=== PATIENT | male | born 1955 | race African-American/Black ===

== ENCOUNTER 2024-07-31 09:09 | Outpatient (AMB) | payer MEDICARE, SELFPAY ==
--- NOTE | 2024-07-31 09:40 | A.OFFPC_ITS ---
Vital Signs 07/31/24 09:46 Height 5 ft 7 in Weight 211 lb BMI 33.0 BP 110/70 Blood Pressure Location Rt brachial Position Sitting Respiration 10 L Pulse 72 Pulse Source Pulse Oximeter Temp 97.6 F Temp Source Tympanic Pulse Oximetry (%) 94 Oxygen Delivery Method Room Air Intake Visit Reasons: Need to establish care Intake Note: establish care Allergies No Known Allergies Allergy (Verified 07/31/24 09:44) Medication List - Last Reconciled 07/31/24 by Bayron Yeung MD No Known Home Meds Tobacco use date assessed: 07/31/24 Fall risk assessment: No Falls in past year Last assessed Fall Risk: 07/31/24 Dental Screening Dental Screen Date: 07/31/24 Did you have a dental visit in the last 12 months?: Yes Did you have a dental problem in the last 6 months where you did not have access to dental care?: No Was dental information given to patient?: Patient has dentist HPI Need to establish care HPI Details New Patient? ?? Prior PCP:?Last PCP around 2018 in [place] Last office visit/CPE:? as above Acute issue(s):? Thigh?and?knee?pain?which?is?intermittent He?also?notes?some?epigastric?bloating?and?chest?discomfort?which he?associates?with?activity?but?is?not?consistent. ?? PMHx:?Hx HLD. SurgHx:? None FHx:? Mom: CVA, DM. Sister Colon CA. Sister: DM, kidney failure. SocHx:?Nonsmoker, EtOH Beer 12 cans a week. MJ No drugs HPI Comments History of Present Illness Details Documentation assistance for Bayron Yeung MD, was provided by Jorge Arteaga,? Account Management Specialist on 07/31/2024 at 10:07 AM ANGELES. Robbin, Dr. Yeung, have read, observed, and verified documentation. [facility] Social History (Updated 07/31/24 @ 09:44 by Lucia Blackwood MA) Housing: House Patient Tobacco Use Status: Former Tobacco user e-Cigarette/Vaping Use: Never Used Second Hand Smoke Exposure: No Use of substances other than those prescribed or required for medical reasons: No service: Yes Current occupational status: unemployed Current occupational exposures/hazards: No Cognitive needs: No Hearing needs: No Vision needs: Yes Questionnaire PHQ-9 Over the last 2 weeks, how often have you been bothered by any of the following problems? 1. Little interest or pleasure in doing things: not at all 2. Feeling down, depressed, or hopeless: not at all 3. Trouble falling or staying asleep, or sleeping too much: nearly every day 4. Feeling tired or having little energy: not at all 5. Poor appetite or overeating: not at all 6. Feeling bad about yourself - or that you are a failure or have let yourself or your family down: not at all 7. Trouble concentrating on things, such as reading the newspaper or watching television: not at all 8. Moving or speaking so slowly that other people could have noticed. Or the opposite - being so fidgety or restless that you have been moving around a lot more than usual: not at all 9. Thoughts that you would be better off or of hurting yourself in some way: not at all Total score: 3 Depression Screening Interpretation: Negative Depression Screening Done: Yes 14204 - PHQ-9 Billing: Yes Source: Developed by Drs. Roger Rosario, Safia Parry, Brandon Galvez and colleagues, with an educational ahsan from [employer]. Thrive Questionnaire Date Thrive assessed: 07/31/24 I am a: Patient What is your living situation today?: I have a steady place to live Within the past 12 months, did the food you bought not last and you didn't have the money to get more?: Never true Within the past 12 months, did you worry whether your food would run out before you got money to buy more?: Never true Do you have trouble paying for medicines?: No Do you have trouble getting transportation to medical appointments?: No Do you have trouble paying your heating and electricity bill?: No Do you have trouble taking care of your child, family member or friend?: No Do you have trouble with day-to-day activities such as bathing, preparing meals, shopping, managing finances, etc.?: No Are you currently unemployed and looking for a job?: No Are you interested in more education?: No Please select the resources that you would like help with: None Currently or been in a relationship where the following occur: No concerns reported THRIVE Score: 0 AUDIT C Alcohol Use Questionnaire (AUDIT-C) 1. How often do you have a drink containing alcohol?: 2-3 times a week 2. How many drinks containing alcohol do you have on a typical day when you are drinking?: 5 or 6 3. How often do you have six or more drinks on one occasion?: Weekly Total Score: 8 Score Reviewed/Action Taken: Yes ASHLEY-7 AMB Questionnaire ASHLEY-7 Date ASHLEY - 7 assessed: 07/31/24 Feeling nervous, anxious, or on edge: 0 = Not at all Not being able to stop or control worryin = Not at all Worrying too much about different things: 0 = Not at all Trouble relaxin = Not at all Being so restless that it is hard to sit still: 0 = Not at all Becoming easily annoyed or irritable: 0 = Not at all Feeling afraid as if something awful might happen: 0 = Not at all Total ASHLEY-7 score (0-4 normal; 5-9 mild; 10-14 moderate; 15-21 severe): 0 Source: Developed by Drs. Roger Rosario, Safia Parry, Brandon Galvez and colleagues, with an educational ahsan from [employer]. ASHLEY-7 Assessment Billing ASHLEY-7 Assessment Tool: ASHLEY-7 Assessment 33582 Review of Systems Const Denies chills, Denies fatigue, Denies fever(s), Denies headache(s) and Denies weakness ENT Denies dizziness and Denies headache(s) Card Denies chest pain, Denies lightheadedness, Denies dyspnea and Denies other (Palpitations) Resp Denies cough, Denies dyspnea, Denies wheezing and Denies other ( shortness of breath) Musc Denies numbness and Denies tingling Neuro Denies dizziness, Denies headache(s), Denies numbness, Denies tingling, Denies paresthesias and Denies weakness Psych Denies anxiety and Denies depression Endo Denies fatigue Aller/Immun Denies wheezing Physical exam (Primary Care) Vital Signs: Last Vital Signs Temp 97.6 F 07/31/24 09:46 Pulse 72 07/31/24 09:46 Resp 10 L 07/31/24 09:46 BP 110/70 07/31/24 09:46 Pulse Ox 94 07/31/24 09:46 Oxygen Delivery Method Room Air 07/31/24 09:46 BMI result Body Mass Index 33.0 Tobacco/Smoking Status: Tobacco use Status Tobacco use date assessed 07/31/24 07/31/24 09:45 Patient Tobacco Use Status Former Tobacco user 07/31/24 09:45 e-Cigarette/Vaping Use Never Used 07/31/24 09:49 PHQ-9: PHQ-9 Score PHQ-9: Total score 3 07/31/24 09:56 Depression Screening Interpretation: Negative Thrive Assessment: Date of Thrive Assessment Date Thrive assessed 07/31/24 07/31/24 09:45 Currently or been in a relationship where the following occur: No concerns reported Const General: no acute distress and well developed Nutritional Appearance: well nourished Orientation/consciousness: patient oriented x3 HENMT Head: Yes normocephalic and Yes atraumatic Eyes General: appearance normal, both eyes and all related structures Pupils: Equal, round and reactive pupils present EOM: EOMs intact bilaterally Resp Effort & Inspection: normal respiratory effort Auscultation: clear to auscultation bilaterally Cardio Rate: regular rate Rhythm: regular rhythm Heart sounds: S1 normal heart sound present, S2 normal heart sound present, no gallops, no murmurs and no rubs Neuro General: patient oriented x3 and gait normal Cranial nerves: Yes Equal, round and reactive pupils present Psych Affect: normal affect Assessment and Plan Assessment & Plan (1) Lower extremity pain: Code(s): M79.606 - Pain in leg, unspecified Plan: Patient?has?thigh?and?knee?pain?bilaterally. Walks?every?day May?be?mild?overuse?strain Advised?ice/heat?and?gentle?stretching Offered?physical?therapy?but?patient?declines?this?for?now He?will?let?me?know?if?he?changes?his?mind (2) Chest pain: Code(s): R07.9 - Chest pain, unspecified Plan: Patient?gets?some? epigastric?bloating?and?burning?discomfort?which?rises?up?and?causes?some?chest? discomfort. Associates?this?with?activity?but?this?is?not?consistent. EKG?today: Normal?sinus?rhythm,?left?axis?deviat ion,?no?hypertrophy,?no?ST-T-wave?changes. No?ischemia?or?infarction;?Likely?age-related?changes. Okay?for?him?to?exercise..??If?having?pain Trial?omeprazole?and?simethicone?for?GI?symptoms. (3) Hyperlipidemia: Code(s): E78.5 - Hyperlipidemia, unspecified Plan: History?of?hyperlipidemia Check?labs (4) Family history of diabetes mellitus: Code(s): Z83.3 - Family history of diabetes mellitus Plan: History?of?diabetes Check?labs?including?A1c (5) Laboratory exam ordered as part of routine general medical examination: Code(s): Z00.00 - Encounter for general adult medical examination without abnormal findings Plan: Check?labs (6) Epigastric discomfort: Code(s): R10.13 - Epigastric pain Plan: Trial?omeprazole?and?simethicone Orders: Orders Complete Blood Count Auto Diff Today Z00.00 - Encounter for general adult medical examination without abnormal findings Microalbumin, Random (w Creat) Today I10 - Essential (primary) hypertension UA and rflx microscopic Today Z00.00 - Encounter for general adult medical examination without abnormal findings Comprehensive [place]. Panel Fast Today Z00.00 - Encounter for general adult medical examination without abnormal findings Lipid Panel Today Z00.00 - Encounter for general adult medical examination without abnormal findings Prostate Specific Antigen Scr Today Z12.5 - Encounter for screening for malignant neoplasm of prostate TSH reflex Free T4 Today Z00.00 - Encounter for general adult medical examination without abnormal findings Hemoglobin A1c Today R73.01 - Impaired fasting glucose, Z83.3 - Family history of diabetes mellitus AMB EKG-In Office Today R07.9 - Chest pain, unspecified Medications: New simethicone 80 mg PO BID-QID 90 days PRN 270 tabs 1RF abdominal distention omeprazole 20 mg PO DAILY 90 days 90 caps 1RF Coding Level of Care Code New Pt Level 3 (49349) Diagnoses Lower extremity pain M79.606 Chest pain R07.9 Hyperlipidemia E78.5 Family history of diabetes mellitus Z83.3 Laboratory exam ordered as part of routine general medical examination Z00.00 Epigastric discomfort R10.13 Additional Codes ASHLEY-7 Assessment Billing - ASHLEY-7 Assessment Tool: ASHLEY-7 Assessment 51852 ([id number])
[2024-07-31 09:46] VITALS: BP 110/70; PULSE 72; RESP 10; TEMP 36.4; O2SAT 94; BMI 33.0
== END 2024-07-31 10:41 | disposition home or self-care (01) ==
PROVIDERS: PCP Family Medicine; Visit Provider Family Medicine
DX: M79.606 Pain in leg, unspecified (principal); R07.9 Chest pain, unspecified; E78.5 Hyperlipidemia, unspecified; Z83.3 Family history of diabetes mellitus; Z00.00 Encounter for general adult medical examination without abnormal findings; R10.13 Epigastric pain

== ENCOUNTER → 2024-07-31 09:09 | Outpatient (BNVA) | payer MEDICARE, SELFPAY | PROVIDERS: PCP Family Medicine; Visit Provider Family Medicine | DX: Z00.00 Encounter for general adult medical examination without abnormal findings (principal); R07.9 Chest pain, unspecified; E78.5 Hyperlipidemia, unspecified; R10.13 Epigastric pain; Z83.3 Family history of diabetes mellitus | CPT/HCPCS: 99202 ==

== ENCOUNTER 2024-07-31 10:48 | Outpatient (REF) | payer MEDICARE, SELFPAY ==
[2024-07-31 14:30] LABS: Appearance Urine Clear; Color Urine Yellow; Glucose Urine UA >=1000 mg/dL (Negative); Leukocyte Esterase Urine Negative (Negative); Nitrite Urine Negative (Negative); PH 5.5 (5.0-9.0); Specific Gravity - Urine 1.015 (1.005-1.025); UMIC TRIGGER UA YES; Urine Blood Negative (Negative); Urine Ketones 40 mg/dL (Negative); Urine Protein Negative (Neg-Trace)
[2024-07-31 14:30] LABS: MANUAL DIFF FLAG NO
[2024-07-31 14:36] LABS: Bacteria Urine None Seen (None Seen); Hyaline Casts Urine 0-2 /LPF (0-2); RBC Urine 0-2 /HPF (0-2); Squamous Epithelial Cell Urine 0-2 /HPF (0-2); WBC Urine 0-5 /HPF (0-5)
[2024-07-31 14:40] LABS: Basophils Absolute Auto 0.1 X10*3/uL (0.0-0.2); Basophils Percent Auto 0.8 % (0-2); Eosinophils Percent Auto 0.4 % (0-4); Hematocrit 45.2 % (42.0-52.0); Hemoglobin 16.1 g/dl (14.0-18.0); Imm Gran Abs Auto 0.03 X10*3/uL (0.00-0.03); Imm Gran Pct Auto 0.4 % (0.0-0.4); Lymphocytes Absolute Auto 1.9 X10*3/uL (1.2-4.9); Lymphocytes Percent Auto 25.7 % (20-40); Mean Corpuscular HGB Conc 35.6 g/dl (31.0-36.0); Mean Corpuscular Hemoglobin 30.2 pg (27.0-33.0); Mean Corpuscular Volume 84.8 fL (80.0-98.0); Mean Platelet Volume 9.7 fL (9.4-12.4); Monocytes Absolute Auto 0.6 X10*3/uL (0.1-1.2); Monocytes Percent Auto 7.9 % (2-11); Neutrophils Absolute Auto 4.8 x10*3/uL (2.0-8.3); Neutrophils Percent Auto 64.8 % (45-73); Platelet Count 254 X10*3/uL (160-400); Red Blood Count 5.33 X10*6/uL (4.60-5.80); Red Cell Distribution Width 12.7 % (11.0-16.0); White Blood Count 7.4 X10*3/uL (4.8-10.8)
[2024-07-31 14:52] LABS: Estimated Average Glucose 209 mg/dL; Hemoglobin A1c % 8.9 % (<6.0)
[2024-07-31 15:07] LABS: Alanine Aminotransferase 32 U/L (0-40); Albumin Level 4.2 g/dL (3.5-5.0); Alkaline Phosphatase 61 U/L (39-117); Anion Gap 13 (12-20); Aspartate Amino Transferase 24 U/L (5-37); Blood Urea Nitrogen 7 mg/dL (9-16); Calcium 9.7 mg/dL (8.4-10.2); Carbon Dioxide 24 mmol/L (22-29); Chloride 104 mmol/L (96-108); Cholesterol 233 mg/dL (<200); Estimated Glomerular Filt Rate > 60; Glucose Fasting 149 mg/dL (60-99); HDL Cholesterol 36 mg/dL (>40); LDL Cholesterol Calculated 164 mg/dL (<100); Potassium 3.7 mmol/L (3.3-5.1); Sodium 137 mmol/L (135-145); Total Protein 7.4 g/dL (6.5-8.0); Triglycerides 165 mg/dL (<150)
[2024-07-31 15:08] LABS: Creatinine Urine 85.47 mg/dL; Microalbum/Creatinine Ratio Ur 53.8 ug/mg cr (<30)
[2024-07-31 15:13] LABS: Prostate Specific Antigen Scr 1.25 ng/mL (<0.05-4.0)
== END 2024-07-31 10:49 | disposition home or self-care (01) ==
LOC: HO.WFDLDS 10:48
PROVIDERS: Visit Provider Family Medicine
DX: Z00.00 Encounter for general adult medical examination without abnormal findings (principal); I10 Essential (primary) hypertension; R73.01 Impaired fasting glucose; Z83.3 Family history of diabetes mellitus; Z12.5 Encounter for screening for malignant neoplasm of prostate
CPT/HCPCS: 36415; 80053; 80061; 81001; 82043; 82570; 83036; 84153; 84443; 85025; 99202

== ENCOUNTER 2025-03-09 13:17 | Outpatient (AMB) | payer MEDICARE, SELFPAY ==
--- NOTE | 2025-03-09 13:22 | A.OFFPC_ITS ---
Vital Signs 03/09/25 13:27 Height 5 ft 7 in Weight 207 lb 4 oz BMI 32.5 BP 130/62 Blood Pressure Location Rt brachial Position Sitting Respiration 14 Pulse 79 Pulse Source Pulse Oximeter Temp 98.0 F Temp Source Oral Pulse Oximetry (%) 96 Oxygen Delivery Method Room Air Intake Visit Reasons: go over high a1c results Intake Note: patient is scheduled to review high a1c Color Worker Required: No Allergies No Known Allergies Allergy (Verified 03/09/25 13:27) Medication List - Last Reconciled 03/09/25 by Bayron Yeung MD omeprazole 20 mg PO DAILY 90 days simethicone 80 mg PO BID-QID PRN 90 days Tobacco use date assessed: 07/31/24 Fall risk assessment: No Falls in past year Last assessed Fall Risk: 03/09/25 Dental Screening Dental Screen Date: 07/31/24 HPI go over high a1c results HPI Details pt presents to f/u labs Elevated fasting BS and A1c >9. LDL cholesterol is elevated as well. [facility] Social History (Updated 07/31/24 @ 09:44 by Lucia Blackwood [facility]) Housing: House Patient Tobacco Use Status: Former Tobacco user e-Cigarette/Vaping Use: Never Used Second Hand Smoke Exposure: No service: Yes Current occupational status: unemployed Current occupational exposures/hazards: No Cognitive needs: No Hearing needs: No Vision needs: Yes Questionnaire PHQ-9 Over the last 2 weeks, how often have you been bothered by any of the following problems? 1. Little interest or pleasure in doing things: not at all 2. Feeling down, depressed, or hopeless: not at all 3. Trouble falling or staying asleep, or sleeping too much: not at all 4. Feeling tired or having little energy: not at all 5. Poor appetite or overeating: not at all 6. Feeling bad about yourself - or that you are a failure or have let yourself or your family down: not at all 7. Trouble concentrating on things, such as reading the newspaper or watching television: not at all 8. Moving or speaking so slowly that other people could have noticed. Or the opposite - being so fidgety or restless that you have been moving around a lot more than usual: not at all 9. Thoughts that you would be better off or of hurting yourself in some way: not at all Total score: 0 Depression Screening Interpretation: Negative Depression Screening Done: Yes 76004 - PHQ-9 Billing: Yes Source: Developed by Drs. Roger Rosario, Saifa Parry, Brandon Galvez and colleagues, with an educational ahsan from [employer]. Thrive Questionnaire Date Thrive assessed: 03/06/25 I am a: Patient What is your living situation today?: I have a steady place to live Within the past 12 months, did the food you bought not last and you didn't have the money to get more?: Never true Within the past 12 months, did you worry whether your food would run out before you got money to buy more?: Never true Do you have trouble paying for medicines?: No Do you have trouble getting transportation to medical appointments?: No Do you have trouble paying your heating and electricity bill?: No Do you have trouble taking care of your child, family member or friend?: No Do you have trouble with day-to-day activities such as bathing, preparing meals, shopping, managing finances, etc.?: No Are you currently unemployed and looking for a job?: Yes Are you interested in more education?: No Please select the resources that you would like help with: None Currently or been in a relationship where the following occur: No concerns reported THRIVE Score: 0 AUDIT C Alcohol Use Questionnaire (AUDIT-C) 1. How often do you have a drink containing alcohol?: 2-4 times a month 2. How many drinks containing alcohol do you have on a typical day when you are drinking?: 3 or 4 3. How often do you have six or more drinks on one occasion?: Less than monthly Total Score: 4 Score Reviewed/Action Taken: Yes ASHLEY-7 AMB Questionnaire ASHLEY-7 Date ASHLEY - 7 assessed: 03/09/25 Feeling nervous, anxious, or on edge: 0 = Not at all Not being able to stop or control worryin = Not at all Worrying too much about different things: 0 = Not at all Trouble relaxin = Several days Being so restless that it is hard to sit still: 0 = Not at all Becoming easily annoyed or irritable: 0 = Not at all Feeling afraid as if something awful might happen: 0 = Not at all Total ASHLEY-7 score (0-4 normal; 5-9 mild; 10-14 moderate; 15-21 severe): 1 Source: Developed by Drs. Roger Rosario, Safia Parry, Brandon Galvez and colleagues, with an educational ahsan from [employer]. ASHLEY-7 Assessment Billing ASHLEY-7 Assessment Tool: ASHLEY-7 Assessment 27224 Review of Systems Const Denies chills, Denies fatigue, Denies fever(s), Denies headache(s) and Denies weakness ENT Denies dizziness and Denies headache(s) Card Denies chest pain, Denies lightheadedness, Denies dyspnea and Denies other (Palpitations) Resp Denies cough, Denies dyspnea, Denies wheezing and Denies other ( shortness of breath) Musc Denies numbness and Denies tingling Neuro Denies dizziness, Denies headache(s), Denies numbness, Denies tingling, Denies paresthesias and Denies weakness Psych Denies anxiety and Denies depression Endo Denies fatigue Aller/Immun Denies wheezing Physical exam (Primary Care) Vital Signs: Last Vital Signs Temp 98.0 F 03/09/25 13:27 Pulse 79 03/09/25 13:27 Resp 14 03/09/25 13:27 BP 130/62 03/09/25 13:27 Pulse Ox 96 03/09/25 13:27 Oxygen Delivery Method Room Air 03/09/25 13:27 BMI result Body Mass Index 32.5 Tobacco/Smoking Status: Tobacco use Status Tobacco use date assessed 07/31/24 03/09/25 13:24 Patient Tobacco Use Status Former Tobacco user 03/09/25 13:24 e-Cigarette/Vaping Use Never Used 03/09/25 13:24 PHQ-9: PHQ-9 Score PHQ-9: Total score 0 03/09/25 14:01 Depression Screening Interpretation: Negative Thrive Assessment: Date of Thrive Assessment Date Thrive assessed 03/06/25 03/09/25 13:24 Currently or been in a relationship where the following occur: No concerns reported Results AMB Hemoglobin A1c AMB Hemoglobin A1c 9.3 % Last Edit by LLUVIA Wren on 03/09/25 17:10 Results Reviewed Results Reviewed: Laboratory Last Values Hgb A1c (Clinic) 9.3 % (4.0-6.0) H 03/09/25 17:09 Coding Level of Care Code Est Pt Level 3 (31525) Diagnoses Diabetes E11.9 Hyperlipidemia E78.5 Additional Codes ASHLYE-7 Assessment Billing - ASHLEY-7 Assessment Tool: ASHLEY-7 Assessment 29279 ([id number]) PHQ-9 - 31827 - PHQ-9 Billing: Yes ([id number]) Assessment & Plan Assessment & Plan (1) Diabetes: Code(s): E11.9 - Type 2 diabetes mellitus without complications Category: Medical Plan: Patient?presents?to?follow-up?lab?work? A1c?9.3%.??Diabetes. New diagnosis. No?excessive?thirst?or?urination.??No?neuropathy. Microfilament?test?normal?bilaterally Discussed?diet?lower?in?sugars?and?starches Discussed?diet?exercise?and?weight?loss Will?refer?to?the?nurse?navigator?for?diabetic?teaching Refer?to?ophthalmology?for diabetic?eye?exam Discussed?foot?care Has?appointment?in?about?a?month?so?we?follow?up ?to?see?how?he?is?doing?with?the?new?medications. (2) Hyperlipidemia: Code(s): E78.5 - Hyperlipidemia, unspecified Category: Medical Plan: Start?atorvastatin?20?mg?daily Plan Patient?has?appointment?next?month.??We?can?follow- up?on?how?he?is?doing?his?medications. Orders: Orders AMB Hemoglobin A1c 03/09/25 E11.9 - Type 2 diabetes mellitus without complications Referrals Ophthalmology Referral E11.9 - Type 2 diabetes mellitus without complications Medications: New metformin Take w/ meal at breakfast and dinner. 500 mg PO BID 90 days 180 tabs 3RF atorvastatin 20 mg PO QPM 90 days 90 tabs 3RF
[2025-03-09 13:27] VITALS: BP 130/62; PULSE 79; RESP 14; TEMP 36.7; O2SAT 96; BMI 32.5
--- OUTSIDE RECORDS SUMMARY | 2025-03-09 13:58 | XMS_ITS | Continuity of Care Document ---
Author Name [facility] Organization [facility] Care Team Providers Care Global Logistics Manager Name Role Phone [facility] Unavailable Unavailable Problems Combined list of problems from Department of Defense and Veterans Affairs facilities. It does not include entries that were removed or entered in error. Problem Status Onset Date Problem Type Date of Resolution Comments Source ABDOM PAIN, GEN'L Active Condition [facility] Anxiety (SNOMED CT 70619806) Active Condition [facility] Anxiety (SNOMED CT 50967448) Active Condition Aug 29, 2021 Entered By: USER,CBOC MIGRATION Comment: Added from station 612 as a result of CBOC move. 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 [facility] GERD Active Condition [facility] Gonococcal prostatitis (acute) (ICD-9-CM 098.12) [facility] Hyperlipidemia Active Condition [facility] Hyperlipidemia Active Condition Aug 152020 Entered By: USER,CBOC MIGRATION Comment: Added from station 612 as a result of CBOC move. [facility] Impacted cerumen * (ICD-9-CM 380.4) Active Condition [facility] ISSUE REPEAT PRESCRIPT Active Condition [facility] Muscle Cramp (ICD-9-CM 729.82) Active Condition [facility] Polyp, Colon Active Condition [facility] Shoulder pain Active Condition [facility] SPRAIN OF WRIST NEC Active Condition [facility] URI (ICD-9-CM 465.9) Active Condition [facility] URIN TRACT INFECTION NOS Active Condition [facility] Varicose veins, leg (ICD-9-CM 454.9) Active Condition [facility] Vitamin D deficiency Active Condition [facility] Vitamin D deficiency Active Condition Aug 29, 2021 Entered By: USER,CBOC MIGRATION Comment: Added from station 612 as a result of CBOC move. [facility] Vitamin D Deficiency (ICD-9-CM 268.9) Active Condition [facility] Wrist sprain (ICD-9-CM 842.09) Active Condition [facility] Medications Combined list of outpatient medications [...] ONCE DAILY ORAL ACTIVE WARNER SMALL 2012 [facility] Immunizations Combined list of available immunizations from the Department of Defense and Veterans Affairs facilities. Immunization Series Date Given Administered By Site Reaction Lot Number CVX Code Drug Fast Food Supervisor Status Comments Source INFLUENZA, INJECTABLE, QUADRIVALENT, PRESERVATIVE FREE 2018 150 complet [facility] INFLUENZA, INJECTABLE, QUADRIVALENT, PRESERVATIVE FREE 2017 150 complet [facility] INFLUENZA, UNSPECIFIED FORMULATION 2015 88 complet ed [facility] 2015 121 complet [facility] INFLUENZA, SEASONAL, INJECTABLE, PRESERVATIVE FREE 2014 140 complet [facility] INFLUENZA, UNSPECIFIED FORMULATION 2012 88 complet [facility] INFLUENZA, UNSPECIFIED FORMULATION 2011 88 complet [facility] TDAP 2011 115 complet [facility] HEP A, UNSPECIFIED FORMULATION 2 2009 85 complet [facility] HEP A, UNSPECIFIED FORMULATION 1 2009 85 complet [facility] INFLUENZA, UNSPECIFIED FORMULATION 2005 88 complet [facility] PNEUMOCOCCAL POLYSACCHARID E PPV23 2005 33 complet [facility] TD(ADULT) UNSPECIFIED FORMULATION 2005 139 complet [facility] PNEUMOCOCCAL, UNSPECIFIED FORMULATION 1999 109 complet ed refused at this time SE JD NA [facility] TETANUS TOXOID, UNSPECIFIED FORMULATION 1996 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
== END 2025-03-09 13:51 | disposition home or self-care (01) ==
LOC: HO.HMCFM 13:18
PROVIDERS: PCP Family Medicine; Visit Provider Family Medicine
DX: E11.9 Type 2 diabetes mellitus without complications (principal); E78.5 Hyperlipidemia, unspecified

== ENCOUNTER → 2025-03-09 13:17 | Outpatient (BNVA) | payer MEDICARE, SELFPAY | PROVIDERS: PCP Family Medicine; Visit Provider Family Medicine | DX: E11.9 Type 2 diabetes mellitus without complications (principal); E78.5 Hyperlipidemia, unspecified | CPT/HCPCS: 83036; 96127; 99212 ==

== ENCOUNTER 2025-03-26 08:59 | Outpatient (AMB) | payer MEDICARE, SELFPAY ==
--- NOTE | 2025-03-26 09:02 | MHC.PC.OV ---
Vital Signs 03/26/25 09:06 Height 5 ft 7 in Weight 203 lb 4 oz BMI 31.8 BP 118/70 Blood Pressure Location Rt brachial Position Sitting Respiration 14 Pulse 62 Pulse Source Pulse Oximeter Temp 97.4 F Temp Source Oral Pulse Oximetry (%) 97 Oxygen Delivery Method Room Air Intake Visit Reasons: CPE with f/u labs & health maint. 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: No Allergies No Known Allergies Allergy (Verified 03/26/25 09:05) Medication List - Last Reconciled 03/26/25 by Bayron Yeung MD atorvastatin 20 mg PO QPM 90 days metformin 500 mg PO BID 90 days omeprazole 20 mg PO DAILY 90 days simethicone 80 mg PO BID-QID PRN 90 days Tobacco use date assessed: 03/26/25 Fall risk assessment: No Falls in past year Last assessed Fall Risk: 03/26/25 Dental Screening Dental Screen Date: 03/26/25 Did you have a dental visit in the last 12 months?: Yes Did you have a dental problem in the last 6 months where you did not have access to dental care?: No Was dental information given to patient?: No HPI CPE with f/u labs & health maint. - see comments HPI Details 69 y/o male presents for a CPE with f/u labs and health maintenance. No recent labs to review. He is on artovastatin. Last A1c 03/09/25 9.3% - new diagnosis of diabetes. He is now on metformin 500mg b.i.d. HPI Comments History of Present Illness Details Documentation assistance for Bayron Yeung MD, was provided by Jorge Arteaga, Assistant Manager Pt on 03/26/2025 at 9:26 AM ANGELES. I, Dr. Yeung, have read, observed, and verified documentation. ? PFSH Social History Housing: House Patient Tobacco Use Status: Former Tobacco user e-Cigarette/Vaping Use: Never Used Second Hand Smoke Exposure: No service: Yes Current occupational status: unemployed Current occupational exposures/hazards: No Cognitive needs: No Hearing needs: No Vision needs: Yes Questionnaire PHQ-9 Over the last 2 weeks, how often have you been bothered by any of the following problems? 1. Little interest or pleasure in doing things: not at all 2. Feeling down, depressed, or hopeless: not at all 3. Trouble falling or staying asleep, or sleeping too much: not at all 4. Feeling tired or having little energy: not at all 5. Poor appetite or overeating: not at all 6. Feeling bad about yourself - or that you are a failure or have let yourself or your family down: not at all 7. Trouble concentrating on things, such as reading the newspaper or watching television: not at all 8. Moving or speaking so slowly that other people could have noticed. Or the opposite - being so fidgety or restless that you have been moving around a lot more than usual: not at all 9. Thoughts that you would be better off or of hurting yourself in some way: not at all Total score: 0 Depression Screening Interpretation: Negative Depression Screening Done: Yes 74783 - PHQ-9 Billing: Yes Source: Developed by Drs. Roger Rosario, Safia Parry, Brandon Galvez and colleagues, with an educational ahsan from [employer] Thrive Questionnaire Date Thrive assessed: 03/26/25 I am a: Patient What is your living situation today?: I have a steady place to live Within the past 12 months, did the food you bought not last and you didn't have the money to get more?: Never true Within the past 12 months, did you worry whether your food would run out before you got money to buy more?: Never true Do you have trouble paying for medicines?: No Do you have trouble getting transportation to medical appointments?: No Do you have trouble paying your heating and electricity bill?: No Do you have trouble taking care of your child, family member or friend?: No Do you have trouble with day-to-day activities such as bathing, preparing meals, shopping, managing finances, etc.?: No Are you currently unemployed and looking for a job?: Yes Are you interested in more education?: No Please select the resources that you would like help with: None Currently or been in a relationship where the following occur: No concerns reported THRIVE Score: 0 AUDIT C Alcohol Use Questionnaire (AUDIT-C) 1. How often do you have a drink containing alcohol?: 2-3 times a week 2. How many drinks containing alcohol do you have on a typical day when you are drinking?: 1 or 2 3. How often do you have six or more drinks on one occasion?: Less than monthly Total Score: 4 Score Reviewed/Action Taken: Yes ASHLEY-7 AMB Questionnaire ASHLEY-7 Date ASHLEY - 7 assessed: 03/26/25 Feeling nervous, anxious, or on edge: 0 = Not at all Not being able to stop or control worryin = Not at all Worrying too much about different things: 0 = Not at all Trouble relaxin = Not at all Being so restless that it is hard to sit still: 0 = Not at all Becoming easily annoyed or irritable: 0 = Not at all Feeling afraid as if something awful might happen: 0 = Not at all Total ASHLEY-7 score (0-4 normal; 5-9 mild; 10-14 moderate; 15-21 severe): 0 Source: Developed by Drs. Roger Rosario, Safia Parry, Brandon Galvez and colleagues, with an educational ahsan from [employer] ASHLEY-7 Assessment Billing ASHLEY-7 Assessment Tool: ASHLEY-7 Assessment 90893 Review of Systems Const Denies chills, Denies fatigue, Denies fever(s), Denies headache(s) and Denies weakness Eyes Denies change in vision ENT Denies dizziness, Denies headache(s), Denies hearing loss, Denies nasal congestion, Denies sinus pain, Denies sinus pressure and Denies sore throat Card Denies chest pain, Denies lightheadedness, Denies dyspnea and Denies other (palpitations) Resp Denies cough, Denies dyspnea and Denies wheezing GI Denies abdominal pain, Denies melena, Denies hematochezia, Denies change in bowel habits, Denies dyspepsia and Denies nausea Denies hematuria and Denies dysuria Musc Denies abnormal gait, Denies myalgias, Denies arthralgias, Denies numbness and Denies tingling Skin/Breast Denies rash, Denies unusual bruising and Denies wounds Neuro Denies abnormal gait, Denies dizziness, Denies headache(s), Denies memory loss, Denies numbness, Denies Sensory deficit (Neuro), Denies tingling and Denies weakness Psych Denies anxiety, Denies depression and Denies memory loss Endo Denies cold intolerance, Denies fatigue, Denies heat intolerance, Denies polydipsia and Denies polyuria Jason/Lymph Denies easy bleeding and Denies easy bruising Aller/Immun Denies wheezing Physical exam (Primary Care) Vital Signs: Last Vital Signs Temp 97.4 F 03/26/25 09:06 Pulse 62 03/26/25 09:06 Resp 14 03/26/25 09:06 BP 118/70 03/26/25 09:06 Pulse Ox 97 03/26/25 09:06 Oxygen Delivery Method Room Air 03/26/25 09:06 BMI result Body Mass Index 31.8 Tobacco/Smoking Status: Tobacco use Status Tobacco use date assessed 03/26/25 03/26/25 09:10 Patient Tobacco Use Status Former Tobacco user 03/26/25 09:10 e-Cigarette/Vaping Use Never Used 03/26/25 09:10 PHQ-9: PHQ-9 Score PHQ-9: Total score 0 03/26/25 09:22 Depression Screening Interpretation: Negative Thrive Assessment: Date of Thrive Assessment Date Thrive assessed 03/26/25 03/26/25 09:10 Currently or been in a relationship where the following occur: No concerns reported Const General: no acute distress, well developed, alert and awake Nutritional Appearance: well nourished Orientation/consciousness: patient oriented x3 HENMT Head: Yes normocephalic and Yes atraumatic Ears: hearing grossly normal bilaterally and TM's normal bilaterally General nose exam: Normal external nose present and Normal nares present Mouth: Normal oral and palatal mucosa present and moist mucous membranes Teeth and gingiva: dentition normal Throat: Yes posterior oropharynx normal Eyes General: appearance normal, both eyes and all related structures Pupils: Equal, round and reactive pupils present and Pupil accommodation reflex normal EOM: EOMs intact bilaterally Neck Neck: Yes normal visual inspection, Yes no lymphadenopathy and Yes trachea midline Thyroid: Thyroid normal Carotids: no bruits Lymphatic: no lymphadenopathy noted Chest Chest palpation & inspection: normal inspection of the chest Resp Effort & Inspection: normal respiratory effort Auscultation: clear to auscultation bilaterally Cardio Rate: regular rate Rhythm: regular rhythm Heart sounds: S1 normal heart sound present, S2 normal heart sound present, no gallops, no murmurs and no rubs Bruits: no abdominal aortic bruits and no carotid bruits GI Palpation (GI): No Abdominal aortic bruit present, Soft to palpation, nontender, No hepatosplenomegaly present and No Rebound tenderness present Auscultation: normal bowel sounds General: Yes no CVA tenderness Back/Spine/Pelvis Back: no CVA tenderness Cervical Spine: cervical ROM normal and No Cervical spine tenderness Thoracic/Lumbar Spine: thoraco-lumbar ROM normal, No pain with thoraco-lumbar ROM, No thoracic spinal tenderness and No lumbar spinal tenderness Skin Lesions: no lesions Rashes: no rashes Trauma: no lacerations or abrasions Wounds: no wounds Nails: normal Neuro General: patient oriented x3 Cranial nerves: Yes Equal, round and reactive pupils present Cognition (Neuro): normal cognition Gait exam (Neuro): Normal gait present Motor exam (neuro): 5/5 motor strength present throughout Sensory Exam: No Sensory deficit (Neuro) Deep tendon reflexes (DTR's): Right patellar reflex intensity grade: 2+ and Left patellar reflex intensity grade: 2+ Extrem General: Yes normal to inspection and No edema Psych Appearance: grossly normal Affect: normal affect Attitude: cooperative Thought process: Normal thought process present Coding Level of Care Code Est Pt Level 3 (03938) Est Pt Prev Care >65y(89481) Diagnoses Adult general medical exam Z00.00 Diabetes E11.9 Hyperlipidemia E78.5 Screening for colon cancer Z12.11 Screening for prostate cancer Z12.5 Additional Codes ASHLEY-7 Assessment Billing - ASHLEY-7 Assessment Tool: ASHLEY-7 Assessment 56114 ([id number]) PHQ-9 - 79702 - PHQ-9 Billing: Yes ([id number]) Assessment & Plan Assessment & Plan (1) Adult general medical exam: Code(s): Z00.00 - Encounter for general adult medical examination without abnormal findings Category: Medical Plan: 69-year-old?male?presents?for?complete?physical?exam Encouraged?healthy?diet?with?active?lifestyle?and?plenty?of?exercise (2) Diabetes: Code(s): E11.9 - Type 2 diabetes mellitus without complications Category: Medical Plan: Recent?diagnosis?of?diabetes. Started?patient?on?metformin?last?month?and?he?is?tolerating?this?fairly?well.??Continue?medication. Will?have?him?return?in?about?2?months?for?follow-up?diabetes?and?recheck?of?A1c (3) Hyperlipidemia: Code(s): E78.5 - Hyperlipidemia, unspecified Category: Medical Plan: LDL?cholesterol?was?high?and?he?was?started?on?atorvastatin?recently Will?recheck?lipids?with?next?blood?draw?and?follow-up?in?2?months. (4) Screening for colon cancer: Code(s): Z12.11 - Encounter for screening for malignant neoplasm of colon Category: Medical Plan: FIT test Neg. Up to Date (5) Screening for prostate cancer: Code(s): Z12.5 - Encounter for screening for malignant neoplasm of prostate Category: Medical Plan: PSA?was?within?normal?range Will?continue?annual?screening Orders: Orders Lipid Panel Today E78.5 - Hyperlipidemia, unspecified, Z00.00 - Encounter for general adult medical examination without abnormal findings [facility] [place]. Panel Fast Today E11.9 - Type 2 diabetes mellitus without complications, Z00.00 - Encounter for general adult medical examination without abnormal findings
[2025-03-26 09:06] VITALS: BP 118/70; PULSE 62; RESP 14; TEMP 36.3; O2SAT 97; BMI 31.8
--- OUTSIDE RECORDS SUMMARY | 2025-03-26 09:07 | XMS_ITS | Continuity of Care Document ---
Author Name [facility] Organization 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 Unavailable Unavailable Problems Combined list of problems from Department of Defense and Veterans Affairs facilities. It does not include entries that were removed or entered in error. Problem Status Onset Date Problem Type Date of Resolution Comments Source ABDOM PAIN, GEN'L Active Condition [facility] Anxiety (SNOMED CT 44515737) Active Condition [facility] Anxiety (SNOMED CT 25050147) Active Condition Aug 29, 2021 Entered By: USER,CBOC MIGRATION Comment: Added from station 612 as a result of CBOC move. 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 [facility] GERD Active Condition [facility] Gonococcal prostatitis (acute) (ICD-9-CM 098.12) Active [facility] Hyperlipidemia Active Condition [facility] Hyperlipidemia Active Condition Aug 152020 Entered By: USER,CBOC MIGRATION Comment: Added from station 612 as a result of CBOC move. [facility] Impacted cerumen * (ICD-9-CM 380.4) Active Condition [facility] ISSUE REPEAT PRESCRIPT Active Condition [facility] Muscle Cramp (ICD-9-CM 729.82) Active Condition [facility] Polyp, Colon Active Condition [facility] Shoulder pain Active Condition [facility] SPRAIN OF WRIST NEC Active Condition [facility] URI (ICD-9-CM 465.9) Active Condition [facility] URIN TRACT INFECTION NOS Active Condition [facility] Varicose veins, leg (ICD-9-CM 454.9) Active Condition [facility] Vitamin D deficiency Active Condition [facility] Vitamin D deficiency Active Condition Aug 29, 2021 Entered By: USER,CBOC MIGRATION Comment: Added from station 612 as a result of CBOC move. [facility] Vitamin D Deficiency (ICD-9-CM 268.9) Active Condition [facility] Wrist sprain (ICD-9-CM 842.09) Active Condition [facility] Medications Combined list of outpatient medications from [...] ONCE DAILY ORAL ACTIVE WARNER SMALL 2012 [facility] Immunizations Combined list of available immunizations from the Department of Defense and Veterans Affairs facilities. Immunization Series Date Given Administered By Site Reaction Lot Number CVX Code Drug Worship Director Status Comments Source INFLUENZA, INJECTABLE, QUADRIVALENT, PRESERVATIVE FREE 2018 150 complet [facility] INFLUENZA, INJECTABLE, QUADRIVALENT, PRESERVATIVE FREE 2017 150 complet [facility] INFLUENZA, UNSPECIFIED FORMULATION 2015 88 complet ed [facility] 2015 121 complet [facility] INFLUENZA, SEASONAL, INJECTABLE, PRESERVATIVE FREE 2014 140 complet [facility] INFLUENZA, UNSPECIFIED FORMULATION 2012 88 complet [facility] INFLUENZA, UNSPECIFIED FORMULATION 2011 88 complet [facility] TDAP 2011 115 complet [facility] HEP A, UNSPECIFIED FORMULATION 2 2009 85 complet [facility] HEP A, UNSPECIFIED FORMULATION 1 2009 85 complet [facility] INFLUENZA, UNSPECIFIED FORMULATION 2005 88 complet [facility] PNEUMOCOCCAL POLYSACCHARID E PPV23 2005 33 complet [facility] TD(ADULT) UNSPECIFIED FORMULATION 2005 139 complet [facility] PNEUMOCOCCAL, UNSPECIFIED FORMULATION 1999 109 complet ed refused at this time [facility] TETANUS TOXOID, UNSPECIFIED FORMULATION 1996 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
== END 2025-03-26 09:32 | disposition home or self-care (01) ==
LOC: HO.HMCFM 09:00
PROVIDERS: PCP Family Medicine; Visit Provider Family Medicine
DX: Z00.00 Encounter for general adult medical examination without abnormal findings (principal); E11.9 Type 2 diabetes mellitus without complications; E78.5 Hyperlipidemia, unspecified; Z12.11 Encounter for screening for malignant neoplasm of colon; Z12.5 Encounter for screening for malignant neoplasm of prostate

== ENCOUNTER → 2025-03-26 08:59 | Outpatient (BNVA) | payer MEDICARE, SELFPAY | PROVIDERS: PCP Family Medicine; Visit Provider Family Medicine | DX: Z00.00 Encounter for general adult medical examination without abnormal findings (principal); E11.9 Type 2 diabetes mellitus without complications; E78.5 Hyperlipidemia, unspecified | CPT/HCPCS: 96127; 99397 ==

== ENCOUNTER 2025-06-19 09:19 | Outpatient (AMB) | payer MEDICARE, SELFPAY ==
--- OUTSIDE RECORDS SUMMARY | 2019-09-26 11:00 | XMS_ITS | Continuity of Care Document ---
Author Name [facility] Organization [facility] Care Team Providers Care Mirror Framer Name Role Phone [facility] Unavailable Unavailable Problems Combined list of problems from Department of Defense and Veterans Affairs facilities. It does not include entries that were removed or entered in error. Problem Status Onset Date Problem Type Date of Resolution Comments Source ABDOM PAIN, GEN'L Active Condition [facility] Anxiety (SNOMED CT 62820919) Active Condition [facility] Anxiety (SNOMED CT 69585048) Active Condition Aug 29, 2021 Entered By: USER,CBOC MIGRATION Comment: Added from station 612 as a result of CBOC move. 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 [facility] GERD Active Condition [facility] Gonococcal prostatitis (acute) (ICD-9-CM 098.12) [facility] Hyperlipidemia Active Condition [facility] Hyperlipidemia Active Condition Aug 152020 Entered By: USER,CBOC MIGRATION Comment: Added from station 612 as a result of CBOC move. [facility] Impacted cerumen * (ICD-9-CM 380.4) Active Condition [facility] ISSUE REPEAT PRESCRIPT Active Condition [facility] Muscle Cramp (ICD-9-CM 729.82) Active Condition [facility] Polyp, Colon Active Condition [facility] Shoulder pain Active Condition [facility] SPRAIN OF WRIST NEC Active Condition [facility] URI (ICD-9-CM 465.9) Active Condition [facility] URIN TRACT INFECTION NOS Active Condition [facility] Varicose veins, leg (ICD-9-CM 454.9) Active Condition [facility] Vitamin D deficiency Active Condition [facility] Vitamin D deficiency Active Condition Aug 29, 2021 Entered By: USER,CBOC MIGRATION Comment: Added from station 612 as a result of CBOC move. [facility] Vitamin D Deficiency (ICD-9-CM 268.9) Active Condition [facility] Wrist sprain (ICD-9-CM 842.09) Active Condition [facility] Medications Combined list of outpatient medications from Department of Defense and Veterans Affairs facilities.Medications provided include 1) outpatient medications from the last 15 months, and 2) patient-reported medications. 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 Immunization Series Date Given Administered By Site Reaction Lot Number CVX Code Drug Road Traffic Controller Status Comments Source INFLUENZA, INJECTABLE, QUADRIVALENT, PRESERVATIVE FREE 2018 150 complet [facility] INFLUENZA, INJECTABLE, QUADRIVALENT, PRESERVATIVE FREE 2017 150 complet [facility] INFLUENZA, UNSPECIFIED FORMULATION 2015 88 complet ed [facility] ZOSTER LIVE 2015 121 complet [facility] INFLUENZA, SEASONAL, INJECTABLE, PRESERVATIVE FREE 2014 140 complet [facility] INFLUENZA, UNSPECIFIED FORMULATION 2012 88 complet [facility] INFLUENZA, UNSPECIFIED FORMULATION 2011 88 complet [facility] TDAP 2011 115 complet [facility] HEP A, UNSPECIFIED FORMULATION 2 2009 85 complet [facility] HEP A, UNSPECIFIED FORMULATION 1 2009 85 complet [facility] INFLUENZA, UNSPECIFIED FORMULATION 2005 88 complet [facility] PNEUMOCOCCAL POLYSACCHARID E PPV23 2005 33 complet [facility] TD(ADULT) UNSPECIFIED FORMULATION 2005 139 complet 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 Social History Type Response Date Comment [facility] e Tobacco smoking status [facility] NEVER USED 07/25/2018 [facility] History of tobacco use LIFETIME NON-TOBA VISCOSE CELLAR CHARGE HAND USER 12/07/2016 [facility] History of tobacco use LIFETIME NON-TOBA VISCOSE CELLAR CHARGE HAND USER 08/10/2006 [facility]
--- NOTE | 2025-06-19 09:39 | MHC.PC.OV ---
Vital Signs 06/19/25 09:45 Height 5 ft 7 in Weight 212 lb 4 oz BMI 33.2 BP 120/70 Blood Pressure Location Rt brachial Position Sitting Respiration 14 Pulse 79 Pulse Source Pulse Oximeter Temp 98.0 F Temp Source Oral Pulse Oximetry (%) 94 Oxygen Delivery Method Room Air Intake Visit Reasons: f/u HLD, diabetes Intake Note: patient is scheduled for for lab and dm review Sound Editor Required: No Allergies No Known Allergies Allergy (Verified 06/19/25 09:41) Medication List - Last Reconciled 06/19/25 by Bayron Yeung MD atorvastatin 20 mg PO QPM 90 days metformin 500 mg PO BID 90 days omeprazole 20 mg PO DAILY 90 days simethicone 80 mg PO BID-QID PRN 90 days Tobacco use date assessed: 03/26/25 Dental Screening Dental Screen Date: 03/26/25 HPI f/u HLD, diabetes HPI Details 70 y/o male presents to f/u HLD, diabetes. No recent labs to review for his lipids. He states he is tolerating artovastatin well. Last A1c 03/09/25 9.3%. A1c today much improved to 6.8%. Pt reports tinnitus. HPI Comments History of Present Illness Details Documentation assistance for Bayron eYung MD, was provided by Jorge Arteaga,? Family Law Specialist on 06/19/2025 at 9:58 AM EST. I, Dr. Yeung, have read, observed, and verified documentation. ?? [facility] Social History Housing: House Patient Tobacco Use Status: Former Tobacco user e-Cigarette/Vaping Use: Never Used Second Hand Smoke Exposure: No service: Yes Current occupational status: unemployed Current occupational exposures/hazards: No Cognitive needs: No Hearing needs: No Vision needs: Yes Questionnaire Thrive Questionnaire Date Thrive assessed: 03/06/25 I am a: Patient What is your living situation today?: I have a steady place to live Within the past 12 months, did the food you bought not last and you didn't have the money to get more?: Never true Within the past 12 months, did you worry whether your food would run out before you got money to buy more?: Never true Do you have trouble paying for medicines?: No Do you have trouble getting transportation to medical appointments?: No Do you have trouble paying your heating and electricity bill?: No Do you have trouble taking care of your child, family member or friend?: No Do you have trouble with day-to-day activities such as bathing, preparing meals, shopping, managing finances, etc.?: No Are you currently unemployed and looking for a job?: Yes Are you interested in more education?: No Please select the resources that you would like help with: None Currently or been in a relationship where the following occur: No concerns reported THRIVE Score: 0 ASHLEY-7 AMB Questionnaire ASHLEY-7 Date ASHLEY - 7 assessed: 03/26/25 Source: Developed by Drs. Roger Rosario, Safia Parry, Brandon Galvez and colleagues, with an educational ahsan from [employer]. Review of Systems Const Denies chills, Denies fatigue, Denies fever(s), Denies headache(s) and Denies weakness ENT Denies dizziness and Denies headache(s) Card Denies dyspnea Resp Denies cough, Denies dyspnea, Denies wheezing and Denies other (shortness of breath) Musc Denies numbness and Denies tingling Neuro Denies dizziness, Denies headache(s), Denies numbness, Denies tingling and Denies weakness Psych Denies anxiety and Denies depression Endo Denies fatigue Aller/Immun Denies wheezing Physical exam (Primary Care) Vital Signs: Last Vital Signs Temp 98.0 F 06/19/25 09:45 Pulse 79 06/19/25 09:45 Resp 14 06/19/25 09:45 BP 120/70 06/19/25 09:45 Pulse Ox 94 06/19/25 09:45 Oxygen Delivery Method Room Air 06/19/25 09:45 BMI result Body Mass Index 33.2 Tobacco/Smoking Status: Tobacco use Status Tobacco use date assessed 03/26/25 06/19/25 09:40 Patient Tobacco Use Status Former Tobacco user 06/19/25 09:40 e-Cigarette/Vaping Use Never Used 06/19/25 09:40 Thrive Assessment: Date of Thrive Assessment Date Thrive assessed 03/06/25 06/19/25 09:40 Currently or been in a relationship where the following occur: No concerns reported Const General: well developed; No acute distress Nutritional Appearance: well nourished Orientation/consciousness: patient oriented x3 HENMT Head: Yes normocephalic and Yes atraumatic Eyes General: appearance normal, both eyes and all related structures Pupils: Equal, round and reactive pupils present EOM: EOMs intact bilaterally Resp Effort & Inspection: normal respiratory effort Neuro General: patient oriented x3 and gait normal Cranial nerves: Yes Equal, round and reactive pupils present Psych Affect: normal affect Coding Level of Care Code Est Pt Level 4 (75712) Diagnoses Diabetes E11.9 Hyperlipidemia E78.5 Tinnitus H93.19 Assessment & Plan Assessment & Plan (1) Diabetes: Code(s): E11.9 - Type 2 diabetes mellitus without complications Category: Medical Plan: A1c significantly improved from 9.3% in February to 6.8% today. Now at goal of less than 7% Continue current medication Continue diabetic diet Will continue to monitor (2) Hyperlipidemia: Code(s): E78.5 - Hyperlipidemia, unspecified Category: Medical Plan: Patient is tolerating atorvastatin 20 mg daily Has not gotten labs drawn but will do so today. (3) Tinnitus: Code(s): H93.19 - Tinnitus, unspecified ear Category: Medical Plan: Ongoing tinnitus No cerumen impaction in either ear Sending patient to audiology for testing Orders: Referrals Audiology Referral H93.19 - Tinnitus, unspecified ear
[2025-06-19 09:45] VITALS: BP 120/70; PULSE 79; RESP 14; TEMP 36.7; O2SAT 94; BMI 33.2
== END 2025-06-19 10:05 | disposition home or self-care (01) ==
LOC: HO.HMCFM 09:20
PROVIDERS: PCP Family Medicine; Visit Provider Family Medicine
DX: E11.9 Type 2 diabetes mellitus without complications (principal); E78.5 Hyperlipidemia, unspecified; H93.19 Tinnitus, unspecified ear

== ENCOUNTER → 2025-06-19 09:19 | Outpatient (BNVA) | payer MEDICARE, SELFPAY | PROVIDERS: PCP Family Medicine; Visit Provider Family Medicine | DX: E11.9 Type 2 diabetes mellitus without complications (principal); E78.5 Hyperlipidemia, unspecified; H93.19 Tinnitus, unspecified ear | CPT/HCPCS: 99212 ==

== ENCOUNTER 2025-06-19 10:11 | Outpatient (REF) | payer MEDICARE, SELFPAY ==
[2025-06-19 14:11] LABS: Appearance Urine Clear; Glucose Urine UA Negative (Negative); PH 5.5 (5.0-9.0); Specific Gravity - Urine 1.015 (1.005-1.025)
[2025-06-19 14:46] LABS: Microalbum/Creatinine Ratio Ur 21.5 ug/mg cr (<30)
[2025-06-19 14:48] LABS: Alanine Aminotransferase 60 U/L (0-40); Albumin Level 4.6 g/dL (3.5-5.0); Alkaline Phosphatase 57 U/L (39-117); Anion Gap 12 (12-20); Aspartate Amino Transferase 38 U/L (5-37); Blood Urea Nitrogen 10 mg/dL (9-16); Calcium 9.3 mg/dL (8.4-10.2); Carbon Dioxide 26 mmol/L (22-29); Chloride 104 mmol/L (96-108); Cholesterol 136 mg/dL (<200); Estimated Glomerular Filt Rate > 60; HDL Cholesterol 30 mg/dL (>40); Potassium 3.8 mmol/L (3.3-5.1); Sodium 138 mmol/L (135-145); Total Protein 7.6 g/dL (6.5-8.0); Triglycerides 138 mg/dL (<150)
== END 2025-06-19 10:12 | disposition home or self-care (01) ==
LOC: HO.WFDLDS 10:11
PROVIDERS: Visit Provider Family Medicine
DX: Z00.00 Encounter for general adult medical examination without abnormal findings (principal); I10 Essential (primary) hypertension; E11.9 Type 2 diabetes mellitus without complications; E78.5 Hyperlipidemia, unspecified
CPT/HCPCS: 36415; 80053; 80061; 81003; 82043; 82570

== ENCOUNTER 2025-08-07 07:46 | Outpatient (REF) | payer MEDICARE, SELFPAY | END 2025-08-07 07:47 | disposition home or self-care (01) | LOC: HO.SH 07:46 | PROVIDERS: Visit Provider Family Medicine | DX: Z01.118 Encounter for examination of ears and hearing with other abnormal findings (principal); H90.3 Sensorineural hearing loss, bilateral; H93.11 Tinnitus, right ear | CPT/HCPCS: 92557; 92567 ==

== ENCOUNTER 2025-09-20 13:18 | Outpatient (AMB) | payer MEDICARE, SELFPAY ==
--- NOTE | 2025-09-20 13:39 | MHC.PC.OV ---
Vital Signs 09/20/25 13:41 09/20/25 13:47 Height 5 ft 7 in Weight 207 lb 8 oz BMI 32.5 BP 145/79 H 151/73 H Blood Pressure Location Lt brachial Lt brachial Position Sitting Sitting Pulse 63 Pulse Source Pulse Oximeter Temp 97.7 F Temp Source Oral Pulse Oximetry (%) 98 Oxygen Delivery Method Room Air Intake Visit Reasons: f/u diabetes Intake Note: Follow up diabetes Channel Marketing Program Manager Required: No Allergies No Known Allergies Allergy (Verified 09/20/25 13:41) Medication List - Last Reconciled 09/20/25 by Bayron Yeung MD atorvastatin 20 mg PO QPM 90 days metformin 500 mg PO BID 90 days omeprazole 20 mg PO DAILY 90 days simethicone 80 mg PO BID-QID PRN 90 days Tobacco use date assessed: 09/20/25 Fall risk assessment: No Falls in past year Last assessed Fall Risk: 09/20/25 Dental Screening Dental Screen Date: 03/26/25 HPI f/u diabetes HPI Details 70 y/o male presents to f/u diabetes. A1c today 11%.. Blood pressure today elevated at 151/73. [facility] Social History (Updated 09/20/25 @ 13:52 by Nery Gomes CMA) Housing: House Alcohol intake: current Patient Tobacco Use Status: Former Tobacco user e-Cigarette/Vaping Use: Never Used Second Hand Smoke Exposure: No service: Yes Current occupational status: unemployed Current occupational exposures/hazards: No Cognitive needs: No Hearing needs: No Vision needs: Yes Questionnaire Thrive Questionnaire Date Thrive assessed: 03/06/25 I am a: Patient What is your living situation today?: I have a steady place to live Within the past 12 months, did the food you bought not last and you didn't have the money to get more?: Never true Within the past 12 months, did you worry whether your food would run out before you got money to buy more?: Never true Do you have trouble paying for medicines?: No Do you have trouble getting transportation to medical appointments?: No Do you have trouble paying your heating and electricity bill?: No Do you have trouble taking care of your child, family member or friend?: No Do you have trouble with day-to-day activities such as bathing, preparing meals, shopping, managing finances, etc.?: No Are you currently unemployed and looking for a job?: Yes Are you interested in more education?: No Please select the resources that you would like help with: None Currently or been in a relationship where the following occur: No concerns reported THRIVE Score: 0 AUDIT C Alcohol Use Questionnaire (AUDIT-C) 1. How often do you have a drink containing alcohol?: Monthly or less 2. How many drinks containing alcohol do you have on a typical day when you are drinking?: 1 or 2 3. How often do you have six or more drinks on one occasion?: Never Total Score: 1 ASHLEY-7 AMB Questionnaire ASHLEY-7 Date ASHLEY - 7 assessed: 03/26/25 Source: Developed by Drs. Roger Rosario, Safia Parry, Brandon Galvez and colleagues, with an educational ahsan from [employer]. Review of Systems Const Denies chills, Denies fatigue, Denies fever(s), Denies headache(s) and Denies weakness ENT Denies dizziness and Denies headache(s) Card Denies chest pain, Denies lightheadedness, Denies dyspnea and Denies other (Palpitations) Resp Denies cough, Denies dyspnea, Denies wheezing and Denies other ( shortness of breath) Musc Denies numbness and Denies tingling Neuro Denies dizziness, Denies headache(s), Denies numbness, Denies tingling, Denies paresthesias and Denies weakness Psych Denies anxiety and Denies depression Endo Denies fatigue Aller/Immun Denies wheezing Physical exam (Primary Care) Vital Signs: Last Vital Signs Temp 97.7 F 09/20/25 13:41 Pulse 63 09/20/25 13:41 BP 151/73 H 09/20/25 13:47 Pulse Ox 98 09/20/25 13:41 Oxygen Delivery Method Room Air 09/20/25 13:41 BMI result Body Mass Index 32.5 Tobacco/Smoking Status: Tobacco use Status Tobacco use date assessed 09/20/25 09/20/25 13:46 Patient Tobacco Use Status Former Tobacco user 09/20/25 13:52 e-Cigarette/Vaping Use Never Used 09/20/25 13:52 Thrive Assessment: Date of Thrive Assessment Date Thrive assessed 03/06/25 09/20/25 13:46 Currently or been in a relationship where the following occur: No concerns reported Const General: no acute distress and well developed Nutritional Appearance: well nourished Orientation/consciousness: patient oriented x3 HENMT Head: Yes normocephalic and Yes atraumatic Eyes General: appearance normal, both eyes and all related structures Pupils: Equal, round and reactive pupils present EOM: EOMs intact bilaterally Resp Effort & Inspection: normal respiratory effort Auscultation: clear to auscultation bilaterally Cardio Rate: regular rate Rhythm: regular rhythm Heart sounds: S1 normal heart sound present, S2 normal heart sound present, no gallops, no murmurs and no rubs Neuro General: patient oriented x3 and gait normal Cranial nerves: Yes Equal, round and reactive pupils present Psych Affect: normal affect Results AMB Hemoglobin A1c AMB Hemoglobin A1c 11 % Last Edit by Nery Gomes CMA on 09/20/25 13:51 Results Reviewed Results Reviewed: Laboratory Last Values Hgb A1c (Clinic) 11 % (4.0-6.0) H 09/20/25 13:47 Coding Level of Care Code Est Pt Level 4 (21558) Diagnoses Uncontrolled diabetes mellitus with hyperglycemia E11.65 Elevated blood pressure reading R03.0 Assessment & Plan Assessment & Plan (1) Uncontrolled diabetes mellitus with hyperglycemia: Code(s): E11.65 - Type 2 diabetes mellitus with hyperglycemia Category: Medical Plan: A1c now over 11. Uncontrolled diabetes. Goal is less than 7.0%. Patient notes that he is taking his metformin as prescribed; 500 mg b.i.d. Will have him take 500 mg q.a.m. and 750 mg q.p.m. Will add glipizide ER 5 mg q.a.m. Work on diabetic diet; reviewed with patient today. Continue exercise (2) Elevated blood pressure reading: Code(s): R03.0 - Elevated blood-pressure reading, without diagnosis of hypertension Category: Medical Plan: Blood pressure is elevated today He will return in 1-2 weeks for nurse visit to recheck blood pressure Orders: Orders AMB Hemoglobin A1c Today E11.9 - Type 2 diabetes mellitus without complications Medications: New glipizide ER 5 mg PO DAILY 90 tabs 2RF 90 days Changed From metformin Take w/ meal at breakfast and dinner. 500 mg PO BID 90 days 180 tabs 3RF To metformin 500mg (1 tab) AM & 750mg (1.5 tabs)PM orally 2 times a day; Take w/ meal at breakfast and dinner. 225 tabs 3RF 90 days
[2025-09-20 13:41] VITALS: BP 145/79; PULSE 63; TEMP 36.5; O2SAT 98; BMI 32.5
[2025-09-20 13:47] VITALS: BP 151/73
== END 2025-09-20 14:12 | disposition home or self-care (01) ==
LOC: HO.HMCFM 13:18
PROVIDERS: PCP Family Medicine; Visit Provider Family Medicine
DX: E11.65 Type 2 diabetes mellitus with hyperglycemia (principal); R03.0 Elevated blood-pressure reading, without diagnosis of hypertension; E11.9 Type 2 diabetes mellitus without complications

== ENCOUNTER → 2025-09-20 13:18 | Outpatient (BNVA) | payer MEDICARE, SELFPAY | PROVIDERS: PCP Family Medicine; Visit Provider Family Medicine | DX: E11.65 Type 2 diabetes mellitus with hyperglycemia (principal); R03.0 Elevated blood-pressure reading, without diagnosis of hypertension | CPT/HCPCS: 83036; 99212 ==

== ENCOUNTER 2025-11-09 10:39 | Outpatient (AMB) | payer MEDICARE, SELFPAY ==
--- NOTE | 2025-11-09 10:48 | A.OFFPC_ITS ---
Vital Signs 11/09/25 10:55 Height 5 ft 7 in Weight 212 lb 8 oz BMI 33.3 BP 124/74 Blood Pressure Location Rt brachial Position Sitting Respiration 16 Pulse 80 Pulse Source Pulse Oximeter Temp 97.9 F Temp Source Temporal Artery Scan Pulse Oximetry (%) 98 Oxygen Delivery Method Room Air Intake Visit Reasons: Cataract Surgery both eyes - [place] Intake Note: Montrell presents in the office today for a Pre-Op for cataract surgery on both eyes. Aircraft Detail Draftsperson Required: No Allergies No Known Allergies Allergy (Verified 11/09/25 10:49) Tobacco use date assessed: 11/09/25 Dental Screening Dental Screen Date: 11/09/25 Did you have a dental visit in the last 12 months?: Yes Did you have a dental problem in the last 6 months where you did not have access to dental care?: No Was dental information given to patient?: Patient has dentist HPI Cataract Surgery both eyes - [place] HPI Details Patient presents for preoperative clearance prior to cataract surgery Procedure: Cataract Surgery Date:? R eye Nov 22, 2025. L Eye Dec 06, 2025. Surgeon: Dr Ramos Anesthesia: Local and sedation. Cardiac Hx: None Pulmonary Hx: None Prior Surgical Complications: Prior Anesthesia Complications: Coag issues: None Functional [place]: Patient says he walks about 4 miles every other day without needing to stop. Climbs a few flights of stairs every day without shortness of breath or chest pain. Good functional reserve [facility] Social History (Updated 11/09/25 @ 10:55 by Lety Simpson [facility]) Housing: House Alcohol intake: current Patient Tobacco Use Status: Former Tobacco user e-Cigarette/Vaping Use: Never Used Second Hand Smoke Exposure: No Use of substances other than those prescribed or required for medical reasons: No service: Yes Current occupational status: unemployed Current occupational exposures/hazards: No Cognitive needs: No Hearing needs: No Vision needs: Yes Questionnaire Thrive Questionnaire Date Thrive assessed: 03/06/25 I am a: Patient What is your living situation today?: I have a steady place to live Within the past 12 months, did the food you bought not last and you didn't have the money to get more?: Never true Within the past 12 months, did you worry whether your food would run out before you got money to buy more?: Never true Do you have trouble paying for medicines?: No Do you have trouble getting transportation to medical appointments?: No Do you have trouble paying your heating and electricity bill?: No Do you have trouble taking care of your child, family member or friend?: No Do you have trouble with day-to-day activities such as bathing, preparing meals, shopping, managing finances, etc.?: No Are you currently unemployed and looking for a job?: Yes Are you interested in more education?: No Currently or been in a relationship where the following occur: No concerns reported THRIVE Score: 0 ASHLEY-7 AMB Questionnaire ASHLEY-7 Date ASHLEY - 7 assessed: 03/26/25 Source: Developed by Drs. Roger Rosario, Safia Parry, Brandon Galvez and colleagues, with an educational ahsan from [employer]. Review of Systems Const Denies chills, Denies fatigue, Denies fever(s), Denies headache(s) and Denies weakness ENT Denies dizziness and Denies headache(s) Card Denies chest pain, Denies lightheadedness, Denies dyspnea and Denies other (Palpitations) Resp Denies cough, Denies dyspnea, Denies wheezing and Denies other ( shortness of breath) Musc Denies numbness and Denies tingling Neuro Denies dizziness, Denies headache(s), Denies numbness, Denies tingling, Denies paresthesias and Denies weakness Psych Denies anxiety and Denies depression Endo Denies fatigue Aller/Immun Denies wheezing Physical exam (Primary Care) Vital Signs: Last Vital Signs Temp 97.9 F 11/09/25 10:55 Pulse 80 11/09/25 10:55 Resp 16 11/09/25 10:55 BP 124/74 11/09/25 10:55 Pulse Ox 98 11/09/25 10:55 Oxygen Delivery Method Room Air 11/09/25 10:55 BMI result Body Mass Index 33.3 Tobacco/Smoking Status: Tobacco use Status Tobacco use date assessed 11/09/25 11/09/25 10:57 Patient Tobacco Use Status Former Tobacco user 11/09/25 10:55 e-Cigarette/Vaping Use Never Used 11/09/25 10:55 Thrive Assessment: Date of Thrive Assessment Date Thrive assessed 03/06/25 11/09/25 10:51 Currently or been in a relationship where the following occur: No concerns reported Const General: no acute distress and well developed Nutritional Appearance: well nourished Orientation/consciousness: patient oriented x3 HENMT Head: Yes normocephalic and Yes atraumatic Eyes General: appearance normal, both eyes and all related structures Pupils: Equal, round and reactive pupils present EOM: EOMs intact bilaterally Resp Effort & Inspection: normal respiratory effort Auscultation: clear to auscultation bilaterally Cardio Rate: regular rate Rhythm: regular rhythm Heart sounds: S1 normal heart sound present, S2 normal heart sound present, no gallops, no murmurs and no rubs Neuro General: patient oriented x3 and gait normal Cranial nerves: Yes Equal, round and reactive pupils present Psych Affect: normal affect Results AMB Hemoglobin A1c AMB Hemoglobin A1c 9.9 % Last Edit by Lety Simpson CMA on 11/09/25 11:55 Coding Level of Care Code Est Pt Level 3 (80471) Diagnoses Pre-operative clearance Z01.818 Diabetes E11.9 Assessment & Plan Assessment & Plan (1) Pre-operative clearance: Code(s): Z01.818 - Encounter for other preprocedural examination Category: Medical (2) Diabetes: Code(s): E11.9 - Type 2 diabetes mellitus without complications Category: Medical Plan 70-year-old male with history of diabetes presents for preoperative clearance prior to cataract surgery. No prior diagnosis of heart disease. EKG: Normal sinus rhythm, left axis deviation, voltage criteria for LVH, no ST-T-wave changes. EKG similar to prior EKG from 2023. Cardiac exam today within normal limits No prior diagnosis of pulmonary disease. Patient is breathing easily. Pulmonary exam is normal today. No history of complications to prior surgeries or anesthesia No bleeding or clotting disorders Good functional reserve: Patient says he walks about 4 miles every other day without needing to stop. Climbs a few flights of stairs every day without shortness of breath or chest pain. Good functional reserve A1c: A1c 9.9% today. Saw patient 1 month ago and made adjustments to his medication regimen. Likely A1c is not at steady state yet. Will adjust metformin again. He will take 1000 mg b.i.d. Continue glipizide Expect he will be near at goal with this regimen. Call or return to office if any problems. Low risk patient for low risk procedure. Optimizing patient. * May proceed with procedure Orders: Orders AMB Hemoglobin A1c Today E11.65 - Type 2 diabetes mellitus with hyperglycemia, E11.9 - Type 2 diabetes mellitus without complications
[2025-11-09 10:55] VITALS: BP 124/74; PULSE 80; RESP 16; TEMP 36.6; O2SAT 98; BMI 33.3
== END 2025-11-09 12:01 | disposition home or self-care (01) ==
LOC: HO.HMCFM 10:40
PROVIDERS: PCP Family Medicine; Visit Provider Family Medicine
DX: E11.9 Type 2 diabetes mellitus without complications (principal); E11.65 Type 2 diabetes mellitus with hyperglycemia; Z01.818 Encounter for other preprocedural examination

== ENCOUNTER → 2025-11-09 10:39 | Outpatient (BNVA) | payer MEDICARE, SELFPAY | PROVIDERS: PCP Family Medicine; Visit Provider Family Medicine | DX: Z01.818 Encounter for other preprocedural examination (principal); H26.9 Unspecified cataract; E11.9 Type 2 diabetes mellitus without complications; Z79.84 Long term (current) use of oral hypoglycemic drugs | CPT/HCPCS: 83036; 99212 ==